=== PATIENT | male | born 1945 | race Two or more races ===

== ENCOUNTER 2016-07-21 20:31 | Inpatient (IN) | payer MEDICARE, OTHER ==
[~2016-07-21] VITALS: Ht 177.8 cm; Wt 92.5 kg
[2016-07-21] MEDS ORDERED: MAG HYDROX/AL HYDROX/SIMETH 30 ML UDC PO PRN (21:30)
[2016-07-21] MEDS ORDERED: MAGNESIUM HYDROXIDE 30 ML UDC PO PRN (21:30)
[2016-07-21] MEDS ORDERED: LORAZEPAM 0.5 MG TABLET PO PRN (21:30)
[2016-07-21] MEDS ORDERED: ZOLPIDEM TARTRATE 5 MG TABLET PO PRN (21:30)
[2016-07-21] MEDS ORDERED: THIA100T74 PO (21:38)
[2016-07-21] MEDS ORDERED: MULT1TAB73 PO (21:38)
[2016-07-21] MEDS ORDERED: ASPI81TA2 PO (21:38)
[2016-07-21] MEDS ORDERED: ENAL10TA75 PO (21:38)
[2016-07-21] MEDS ORDERED: METO100T3 PO (21:38)
[2016-07-21] MEDS ORDERED: TRAZ-144 PO (21:38)
[2016-07-21] MEDS ORDERED: THIA100V2 IJ (21:38)
[2016-07-21] MEDS ORDERED: LOVA40TA2 PO (21:38)
[2016-07-21] MEDS ORDERED: *INS NOVA SQ (21:38)
[2016-07-21] MEDS ORDERED: FOLI1TAB16 PO (21:38)
[2016-07-21] MEDS ORDERED: TAMS0.4C34 PO (21:38)
[2016-07-21] MEDS ORDERED: INSU100I4 SQ (21:38)
[2016-07-21] MEDS ORDERED: CLONIDINE HCL 0.1 MG TABLET PO PRN (22:30)
[2016-07-21] MEDS ORDERED: DEXTROSE 50%-WATER 50 ML DISP.SYRIN IV PRN (22:30)
[2016-07-21] MEDS ORDERED: INSULIN REGULAR, HUMAN 100 UNIT/ML 3 ML VIAL SQ PRN (22:30)
[2016-07-21] MEDS: *INSULIN REGULAR(HUMULIN R)HUM 100 UNIT/ML VIAL SQ PRN (22:34)
[2016-07-21] MEDS ORDERED: ENALAPRIL MALEATE (10 MG) 10 MG TABLET ONE (22:37)
[2016-07-21] MEDS ORDERED: ZOLPIDEM TARTRATE 5 MG TABLET ONE (22:38)
[2016-07-22] MEDS: BLOOD SUGAR DIAGNOSTIC 1 EACH STRIP VI SCH ×4 (06:55→21:25)
[2016-07-22 07:14] LABS: BASOPHILS % (AUTO) 0.3 % (0.0-2.0); DIFF TOTAL % 100 %; EOSINOPHILS % (AUTO) 0.9 % (0.0-6.0); HEMATOCRIT 37 % (39-51); HEMOGLOBIN 12.8 g/dL (13.5-17.5); LYMPHOCYTES # (AUTO) 1.1 /CMM (0.8-4.8); LYMPHOCYTES % (AUTO) 24.8 % (20.0-44.0); MEAN CORPUSCULAR HEMOGLOBIN 31 PG (26.0-33.0); MEAN CORPUSCULAR HGB CONC 35 g/dl (31.0-36.0); MEAN CORPUSCULAR VOLUME 91 fL (80-96); MONOCYTES # (AUTO) 0.5 /CMM (0.1-1.30); MONOCYTES % (AUTO) 12.1 % (2.0-12.0); NEUTROPHILS # (AUTO) 2.6 /CMM (1.8-8.9); NEUTROPHILS % (AUTO) 61.9 % (43.0-81.0); PLATELET COUNT (AUTO) 174 /CMM (150-450); WHITE BLOOD COUNT (AUTO) 4.3 K/uL (4.3-11.0)
[2016-07-22 07:33] LABS: BILIRUBIN,TOTAL 0.7 mg/dL (0.2-1.0); CALCIUM, SERUM 8.3 mg/dL (8.5-10.1); CREATININE 1.3 mg/dL (0.6-1.3); POTASSIUM 3.6 mmol/L (3.5-5.1); TOTAL PROTEIN, SERUM 6.4 g/dL (6.4-8.2)
[2016-07-22 08:00] VITALS: BP 145/73
[2016-07-22] MEDS: THIAMINE HCL 100 MG TABLET PO SCH (08:36)
[2016-07-22] MEDS: ASPIRIN 81 MG TAB.CHEW PO SCH (08:36)
[2016-07-22] MEDS: FOLIC ACID 1 MG TABLET PO SCH (08:36)
[2016-07-22] MEDS: MULTIVITAMINS,THERAPEUTIC 1 UDTAB TABLET PO SCH (08:36)
[2016-07-22] MEDS: ENALAPRIL MALEATE (10 MG) 10 MG TABLET PO SCH (08:44)
[2016-07-22] MEDS: METOPROLOL TARTRATE 50 MG TABLET PO SCH ×2 (09:00→21:16)
[2016-07-22] MEDS ORDERED: Medication Not On Formulary EA (Lovastatin 1 TAB) PO SCH (09:00)
[2016-07-22] MEDS ORDERED: ENALAPRIL MALEATE (10 MG) 10 MG TABLET PO SCH (09:00)
[2016-07-22 16:00] VITALS: BP 139/97
[2016-07-22 19:51] VITALS: BP 133/64
[2016-07-22] MEDS: *INSULIN REGULAR(HUMULIN R)HUM 100 UNIT/ML VIAL SQ PRN (21:20)
[2016-07-22] MEDS ORDERED: ATORVASTATIN 10 MG TABLET PO SCH (22:00)
[2016-07-22] MEDS ORDERED: TRAZODONE 50 MG TABLET PO SCH (22:00)
[2016-07-22] MEDS ORDERED: TAMSULOSIN 0.4 MG CAP.SR.24H PO SCH (22:00)
[2016-07-23] MEDS: BLOOD SUGAR DIAGNOSTIC 1 EACH STRIP VI SCH ×2 (07:58→12:07)
[2016-07-23 08:00] VITALS: BP 124/77
[2016-07-23] MEDS: FOLIC ACID 1 MG TABLET PO SCH (08:12)
[2016-07-23] MEDS: MULTIVITAMINS,THERAPEUTIC 1 UDTAB TABLET PO SCH (08:12)
[2016-07-23] MEDS: ENALAPRIL MALEATE (10 MG) 10 MG TABLET PO SCH (08:12)
[2016-07-23] MEDS: METOPROLOL TARTRATE 50 MG TABLET PO SCH (08:12)
[2016-07-23] MEDS: THIAMINE HCL 100 MG TABLET PO SCH (08:12)
[2016-07-23] MEDS: ASPIRIN 81 MG TAB.CHEW PO SCH (08:12)
[2016-07-23 16:00] VITALS: BP 143/72
== END 2016-07-23 17:30 | disposition left against medical advice (07) | DRG 881 ==
LOC: GPS 20:31
PROVIDERS: ADMIT Psychiatry & Neurology Psychiatry; ATTEND Internal Medicine
DX: F32.9 Major depressive disorder, single episode, unspecified (principal); F10.229 Alcohol dependence with intoxication, unspecified; E11.9 Type 2 diabetes mellitus without complications; E78.5 Hyperlipidemia, unspecified; F03.90 Unspecified dementia, unspecified severity, without behavioral disturbance, psychotic disturbance, mood disturbance, and anxiety; F41.9 Anxiety disorder, unspecified; I10 Essential (primary) hypertension; N40.0 Benign prostatic hyperplasia without lower urinary tract symptoms
CPT/HCPCS: 36415; 80053-TC; 82962-TC; 85025-TC; 87081-TC; J1815